=== PATIENT | female | born 2000 ===

== ENCOUNTER 2019-07-06 07:59 | Outpatient (CLI) | payer MEDICAID ==
--- NOTE | 2019-07-06 08:45 | ULT ---
LIMITED LEFT BREAST ULTRASOUND: DATE: 07/06/2019. PROVIDED CLINICAL HISTORY: Left breast palpable abnormality. FINDINGS: Limited sonographic interrogation was performed of the left breast in the region of palpable concern. The sonographic appearance of the breast tissue in this region is unremarkable. IMPRESSION: No sonographic abnormality to correspond with the reported palpable finding. Negative imaging findin gs should not preclude further evaluation of a clinically suspicious finding. The patient is referre d back to her clinician. POS: OFF
== END 2019-07-06 08:00 | disposition home or self-care (01) ==
LOC: BICULT 07:59
PROVIDERS: ATTEND Nurse Practitioner Family
DX: N63.21 Unspecified lump in the left breast, upper outer quadrant (principal); N64.4 Mastodynia